=== PATIENT | female | born 1955 | race Caucasian/White ===

== ENCOUNTER → 2025-09-05 10:05 | Outpatient (CLI) | payer MEDICARE, SELFPAY ==
--- NOTE | 2025-09-05 10:16 | DI.RAD.S_ITS ---
PROCEDURE: XR HIP W PEL IF DONE BILAT 2V INDICATIONS: Hip pain TECHNIQUE: AP pelvis and lateral view of the hip acquired. COMPARISON: None. FINDINGS: Bones: Patient is status post bilateral hip arthroplasty, with hardware components in expected positions. No gross hardware loosening or failure is seen. No acute periprosthetic fracture is noted. Post fixation changes are noted in visualized lower lumbar spine. No suspicious bony lesions. Soft tissues: No suspicious soft tissue densities. IMPRESSION: Prior bilateral total hip arthroplasty with postsurgical changes. No acute fracture or dislocation. No gross hardware loosening or failure. Dictated by: Sandip Whatley M.D. on 09/05/2025 at 16:39 Approved by: Sandip Whatley M.D. on 09/05/2025 at 16:40
== END ==
PROVIDERS: PCP Nurse Practitioner Family; Referring Provider Acupuncturist; Visit Provider Acupuncturist
DX: M25.559 Pain in unspecified hip (principal); Z96.643 Presence of artificial hip joint, bilateral
CPT/HCPCS: 73521